=== PATIENT | male | born 1980 | race Caucasian/White ===

== ENCOUNTER → 2020-07-19 14:07 | Outpatient (BNVA) | payer OTHER, SELFPAY | PROVIDERS: PCP Family Medicine; Referring Provider Family Medicine; Visit Provider Anesthesiology | DX: M47.817 Spondylosis without myelopathy or radiculopathy, lumbosacral region (principal); M46.1 Sacroiliitis, not elsewhere classified | CPT/HCPCS: 99203 ==

== ENCOUNTER → 2020-07-20 13:05 | Outpatient (BNVA) | payer OTHER, SELFPAY | PROVIDERS: PCP Family Medicine; Visit Provider Physician Assistant Medical | DX: M47.817 Spondylosis without myelopathy or radiculopathy, lumbosacral region (principal); M46.1 Sacroiliitis, not elsewhere classified | CPT/HCPCS: 99213 ==

== ENCOUNTER → 2020-08-17 15:12 | Outpatient (BNVA) | payer OTHER, SELFPAY | PROVIDERS: PCP Family Medicine; Visit Provider Physician Assistant Medical | DX: M51.17 Intervertebral disc disorders with radiculopathy, lumbosacral region (principal) | CPT/HCPCS: 99213 ==

== ENCOUNTER 2020-09-04 13:00 | Outpatient (REF) | payer OTHER, MEDICAID, SELFPAY ==
--- NOTE | 2020-09-04 13:00 | FL_ITS ---
EXAMINATION: XR FLUOROSCOPY WITH IMAGES CLINICAL INFORMATION: M46.1 - Sacroiliitis, not elsewhere classified COMPARISON: MR lumbar spine TECHNIQUE: Fluoroscopy performed by Judith Adam NP. Fluoroscopy time: 0.1 minutes Total dose: 13.0 mGy Images: 1 FINDINGS: There is a spinal needle overlying lower aspect right SI joint with some early intra-articular contrast. FL/FL guidance in treatment room IMPRESSION: Fluoroscopy for pain management procedure.
== END 2020-09-04 13:01 | disposition home or self-care (01) ==
LOC: HO.RADIR 13:00
PROVIDERS: Visit Provider Anesthesiology
DX: M47.817 Spondylosis without myelopathy or radiculopathy, lumbosacral region (principal); M46.1 Sacroiliitis, not elsewhere classified
CPT/HCPCS: 27096; J3300; Q9967

== ENCOUNTER → 2020-09-26 15:25 | Outpatient (BNVA) | payer OTHER, SELFPAY | PROVIDERS: PCP Family Medicine; Visit Provider Physician Assistant Medical | DX: M51.17 Intervertebral disc disorders with radiculopathy, lumbosacral region (principal); M46.1 Sacroiliitis, not elsewhere classified | CPT/HCPCS: 99213 ==

== ENCOUNTER → 2020-10-15 13:40 | Outpatient (BNVA) | payer OTHER, SELFPAY | PROVIDERS: PCP Family Medicine; Visit Provider Anesthesiology | DX: Z76.89 Persons encountering health services in other specified circumstances (principal) ==

== ENCOUNTER → 2020-10-24 09:08 | Outpatient (BNVA) | payer OTHER, SELFPAY | PROVIDERS: PCP Family Medicine; Visit Provider Physician Assistant Medical | DX: M51.17 Intervertebral disc disorders with radiculopathy, lumbosacral region (principal); M46.1 Sacroiliitis, not elsewhere classified | CPT/HCPCS: 99213 ==

== ENCOUNTER → 2020-11-23 13:49 | Outpatient (BNVA) | payer OTHER, SELFPAY | PROVIDERS: PCP Family Medicine; Visit Provider Physician Assistant Medical | DX: M51.17 Intervertebral disc disorders with radiculopathy, lumbosacral region (principal) | CPT/HCPCS: 99213 ==

== ENCOUNTER 2020-12-12 14:00 | Outpatient (RCR) | payer OTHER, MEDICAID, SELFPAY ==
--- NOTE | 2020-11-02 12:51 | MHC.PT.EP ---
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 Upon exam he demonstrates decreased lumbar ROM and decreased LE strength, altered gait and balance and increased pain. Functional limitations include decreased ability to perform ADLs and homemaking tasks, decreased tolerance to lifting, bending, reaching and squatting, decreased participation in fitness activities, difficulty performing work tasks and disrupted sleep. Frequency and Duration: The patient will be seen 2 x week for 5 weeks Short Term Goals: initiate HEP and promote self management of symptoms with evidence of learning in 2 weeks Snf Goals: in 5 weeks independent HEP RTW f/t, f/d utilizing correct body mechanics and pain no greater than 2/10 Full LE strength, equal natty Treatment Plan: Modalities to reduce pain, spasms and effusion. Manual therapy to restore motion and function. Therapeutic exercise to improve strength and flexibility. Neuromuscular re-education for posture and balance. Therapeutic activities to return to functional activities of daily living. Electronically signed by: Ariana Hanna PT, DPT Please sign and return to therapist. Thank you for your referral.
== END 2021-01-24 10:04 | disposition other institution (70) ==
LOC: HO.PT 14:00
PROVIDERS: PCP Family Medicine; Visit Provider Physician Assistant Medical
DX: M46.1 Sacroiliitis, not elsewhere classified (principal)
CPT/HCPCS: 97110; 97161; 97530

== ENCOUNTER → 2020-12-21 13:08 | Outpatient (BNVA) | payer OTHER, SELFPAY | PROVIDERS: PCP Family Medicine; Visit Provider Physician Assistant Medical | DX: M46.1 Sacroiliitis, not elsewhere classified (principal) | CPT/HCPCS: 99213 ==

== ENCOUNTER 2021-01-01 06:07 | Outpatient (REF) | payer OTHER, SELFPAY ==
--- NOTE | ~2021-01-01 | FL_ITS ---
EXAMINATION: XR FLUOROSCOPY WITH IMAGES CLINICAL INFORMATION: M47.817 - Spondylosis without myelopathy or radiculopathy, lumbosacral region COMPARISON: MR lumbar spine 02/29/2020 TECHNIQUE: Fluoroscopy performed by Judith Adam NP. Fluoroscopy time: 0.6 minutes DAP: 14.6 Gycm2 Images: 4 FINDINGS: There are spinal needles overlying the outer aspect right L2, L3, L4, and L5 neural foramen. There is contrast seen in the nerve sheaths with some transforaminal epidural extension. No visible vascular communication. FL/FL guidance in treatment room IMPRESSION: Fluoroscopy for pain management procedures.
== END 2021-01-01 06:08 | disposition home or self-care (01) ==
LOC: HO.RADIR 06:07
PROVIDERS: Visit Provider Anesthesiology
DX: M47.817 Spondylosis without myelopathy or radiculopathy, lumbosacral region (principal); M46.1 Sacroiliitis, not elsewhere classified
CPT/HCPCS: 64494; 64495; Q9967

== ENCOUNTER → 2021-01-09 15:03 | Outpatient (BNVA) | payer OTHER, SELFPAY | PROVIDERS: PCP Family Medicine; Visit Provider Anesthesiology ==

== ENCOUNTER → 2021-01-11 15:19 | Outpatient (BNVA) | payer OTHER, SELFPAY | PROVIDERS: PCP Family Medicine; Visit Provider Physician Assistant Medical | DX: M51.17 Intervertebral disc disorders with radiculopathy, lumbosacral region (principal); M46.1 Sacroiliitis, not elsewhere classified | CPT/HCPCS: 99213 ==

== ENCOUNTER → 2021-02-08 13:11 | Outpatient (BNVA) | payer OTHER, SELFPAY | PROVIDERS: PCP Family Medicine; Visit Provider Physician Assistant Medical | DX: M51.17 Intervertebral disc disorders with radiculopathy, lumbosacral region (principal) | CPT/HCPCS: 99213 ==

== ENCOUNTER 2021-02-12 06:14 | Outpatient (REF) | payer OTHER, SELFPAY ==
--- NOTE | ~2021-02-12 | FL_ITS ---
EXAMINATION: XR FLUOROSCOPY WITH IMAGES CLINICAL INFORMATION: M47.817 - Spondylosis without myelopathy or radiculopathy COMPARISON: MR lumbar spine 02/29/2020 TECHNIQUE: Fluoroscopy performed by Judith Adam NP. Fluoroscopy time: 1.0 minutes DAP: 23.5 Gycm2 Images: 2 FINDINGS: There are 4 spinal needles overlying outer aspect right L2, L3, L4, L5 neural foramen. There are degenerative disc changes noted, likely greatest at L4-L5 and L5-S1. FL/FL guidance in treatment room IMPRESSION: Fluoroscopy for pain management procedures.
== END 2021-02-12 06:15 | disposition home or self-care (01) ==
LOC: HO.RADIR 06:14
PROVIDERS: Visit Provider Anesthesiology
DX: M47.817 Spondylosis without myelopathy or radiculopathy, lumbosacral region (principal); M46.1 Sacroiliitis, not elsewhere classified
CPT/HCPCS: 64635; 64636; J3300

== ENCOUNTER 2021-03-01 09:51 | Outpatient (RCR) | payer OTHER, MEDICAID, SELFPAY ==
--- NOTE | 2021-03-01 11:10 | MHC.PT.EP ---
[facility] [place] Office [place] [facility] [place] Office [address] Brian Perales [address] [phone] F: [phone] F: [phone] F: [phone] F: [phone] Physical Therapy Plan of Care Date of Evaluation: Date of Surgery: NA Diagnosis: l5 discopathy Assessment: RYLEY RETURN TO PT FOR SIMILAR SYMPTOMS PREVIOUS. HE WAS UNABLE TO SUCCESSFULLY COMPLETE INJECTION THERAPY AND IS AWAITING POSSIBLE CONSULT IN [place]. HE HAS BEEN WORKING ON HIS HOME EXERCISE PROGRAM AND HAS HAD HIS COVID VACCINE WITH HOPES TO RETURN TO PREVIOUS FITNESS PROGRAM AT THE GYM. HE DEMONSTRATES CONT LOW BACK PAIN WITH DECREASED STRENGTH OF CORE AND LE STRENGTH. 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 Manual therapy to restore motion and function. Therapeutic exercise to improve strength and flexibility. Neuromuscular re-education for posture and balance. Therapeutic activities to return to functional activities of daily living. Electronically signed by: GIORGIO AVILA PT, DPT Please sign and return to therapist. Thank you for your referral.
--- NOTE | 2021-04-02 10:37 | MHC.PT.DC ---
[facility] [place] Office [place] Office [place] Office [address] Brian Perales [address] [phone] F: [phone] F: [phone] F: [phone] F: [phone] Physical Therapy Discharge Report Diagnosis: l5 discopathy Date of Surgery: NA Date of Evaluation: 03/01/21 Date of Discharge: Treatments to Date: 1 Cancellations to Date: 0 No Shows to Date: 0 Discharge Status: Discharge Summary: RYLEY RETURNED TO PT FOR SIMILAR SYMPTOMS PREVIOUS. HE WAS UNABLE TO SUCCESSFULLY COMPLETE INJECTION THERAPY AND IS AWAITING POSSIBLE CONSULT IN [place]. HE HAD BEEN WORKING ON HIS HOME EXERCISE PROGRAM AND HAS HAD HIS COVID VACCINE WITH HOPES TO RETURN TO PREVIOUS FITNESS PROGRAM AT THE GYM. UPON EVAL HE DEMONSTRATED CONT LOW BACK PAIN WITH DECREASED STRENGTH OF CORE AND LE STRENGTH. FUNCTIONAL LIMITATIONS INCLUDED WORK AND FITNESS TASKS, DECREASED PARTICIPATION IN RECREATION AND COMMUNITY ACTIVITIES AND DISRUPTED SLEEP. AT INITIAL EVAL, WE DISCUSSED THE NEED FOR RETURN TO PREVIOUS HOME PROGRAM FROM LAST ROUND OF THERAPY AND TO PROGRESS WITH COMMUNITY BASED FITNESS PROGRAM. HE CANCELLED 2 VISITS OF PT DUE TO ILLNESS AND HAS NOT RETURNED FOR ADDITIONAL FOLLOW UP. Electronically signed by: GIORGIO AVILA PT, DPT Please sign and return to therapist. Thank you for your referral.
== END 2021-04-02 10:43 | disposition other institution (70) ==
LOC: HO.PT 09:51
PROVIDERS: PCP Family Medicine; Visit Provider Physician Assistant Medical
DX: M51.37 Other intervertebral disc degeneration, lumbosacral region (principal)
CPT/HCPCS: 97110; 97161

== ENCOUNTER → 2021-03-20 14:35 | Outpatient (BNVA) | payer OTHER, MEDICAID, SELFPAY | PROVIDERS: PCP Family Medicine; Visit Provider Nurse Practitioner Family ==

== ENCOUNTER → 2021-03-20 15:46 | Outpatient (BNVA) | payer OTHER, SELFPAY | PROVIDERS: PCP Family Medicine; Visit Provider Physician Assistant Medical | DX: M51.17 Intervertebral disc disorders with radiculopathy, lumbosacral region (principal) | CPT/HCPCS: 99213 ==

== ENCOUNTER → 2021-04-01 13:55 | Outpatient (BNVA) | payer OTHER, SELFPAY | PROVIDERS: PCP Family Medicine; Visit Provider Anesthesiology | DX: M47.817 Spondylosis without myelopathy or radiculopathy, lumbosacral region (principal); M46.1 Sacroiliitis, not elsewhere classified | CPT/HCPCS: 99212 ==

== ENCOUNTER → 2021-04-19 16:18 | Outpatient (BNVA) | payer OTHER, SELFPAY | PROVIDERS: PCP Family Medicine; Visit Provider Physician Assistant Medical | DX: M51.17 Intervertebral disc disorders with radiculopathy, lumbosacral region (principal) | CPT/HCPCS: 99213 ==